=== PATIENT | female | born 1970 | race Caucasian/White ===

== ENCOUNTER 2016-10-08 17:38 | Emergency (ER) | payer OTHER ==
[2016-10-08 17:46] VITALS: TEMP 97.7
--- NOTE | 2016-10-08 20:01 | EDPHY ---
H & P Time Seen by Provider: 10/08/16 19:42 HPI/ROS: CHIEF COMPLAINT: Right upper extremity pain after fall HISTORY OF PRESENT ILLNESS: 46-year-old female presents to Urgent Care complaining of pain in her right elbow, right wrist and shoulder after she slipped on some ice around noon today. She did not hit her head or lose consciousness. She is right-hand dominant. She has pain especially in her right wrist with movement. Denies left upper extremity pain. Denies abdominal pain. Denies chest pain or difficulty breathing. She does have some mild upper back pain. She is also complaining of right knee pain. She is able to ambulate. Denies abdominal pain or vomiting. Denies symptoms in her left upper extremity. REVIEW OF SYSTEMS: Constitutional: No fever, no chills. Eyes: No double or blurry vision. ENT: No sore throat. Respiratory: No cough, no shortness of breath. Cardiac: No chest pain. Gastrointestinal: No abdominal pain, vomiting or diarrhea. Genitourinary: No dysuria. Musculoskeletal: As above. No neck pain. Skin: No rashes. Neurological: No headache. Past Medical/Surgical History: Asthma Social History: and lives in [place] Smoking Status: Never smoked Physical Exam: General Appearance: Alert, no distress. No physical signs of trauma to her head. She is mentating normally and answering questions appropriately. Eyes: Pupils equal and round. Extraocular motions are all intact. ENT: Mouth: Mucous membranes moist. Respiratory: No wheezing, rhonchi, or rales, lungs are clear to auscultation. Cardiovascular: Regular rate and rhythm. Gastrointestinal: Abdomen is soft and nontender, no masses, no rebound or guarding, bowel sounds normal. Neurological: Alert and oriented x 3, cranial nerves II through XII grossly intact Skin: Warm and dry, no rashes. Musculoskeletal: Nontender to palpate along the cervical, thoracic or lumbar spine. Neck is supple. Extremities: Pain with range of motion of the right wrist especially with supination. She has some mild pain with palpation over the distal radius. Mild pain with palpation in the right elbow. No palpable crepitus or other bony abnormality. She has full extension and full flexion of the right elbow. She has pain with full supination of the right elbow and wrist. Full range of motion of the right shoulder. Normal sensation to light touch with normal 2 point discrimination. Strong radial pulse at the right wrist. Full range of motion of the left lower extremity and her lower extremities bilaterally. Psychiatric: Patient is oriented X 3, there is no agitation. Constitutional: Initial Vital Signs Temperature (C) 36.5 C 10/08/16 17:43 Heart Rate 83 10/08/16 17:43 Respiratory Rate 18 10/08/16 17:43 Blood Pressure 153/102 H 10/08/16 17:43 O2 Sat (%) 97 10/08/16 17:43 O2 Delivery Mode Room Air Allergies/Adverse Reactions: No Known Allergies Allergy (Unverified 01/25/10 21:21) Home Medications: Medication Instructions Recorded Albuterol 10/08/16 Hydrocodone/APAP 5/325 [[place] 1 each PO Q4-6PRN PRN #15 tab 10/08/16 5/325 (*)] Medical Decision Making - Diagnostics Imaging: X-rays of the right wrist reveal no fractures. This is reviewed by myself the PAC system. Radiology interpretation to follow. Procedures: Patient was placed in Velcro wrist splint and examined post application in good placement with normal [employer]. ED Course/Re-evaluation: 46-year-old female presents with right upper extremity injury after she fell around noon today. Patient is primary complaining of pain in her right wrist. X-rays of the right wrist reveal no fractures. She was placed in a splint for comfort and support. She was having pain in her right elbow and shoulder although she had full range of motion of her right elbow and right shoulder. She did not hit her head or lose consciousness. She has no other palpable bony deformity. Patient was given orthopedic referral follow-up in 1 week. Differential Diagnosis: Including but not limited to fracture, dislocation, contusion, sprain Departure - Departure Disposition: Home, Routine, Self-Care Clinical Impression: Right wrist sprain Qualifiers: Encounter type: initial encounter Qualifier Code: (S63.501A) Unspecified sprain of right wrist, initial encounter Condition: Good Instructions: Wrist Sprain (ED) Additional Instructions: Splint for comfort and support. Ibuprofen 600 mg every 8 hours as needed for pain. Hydrocodone for severe pain as directed to help you sleep. Caution drowsiness with this medication. Follow up with orthopedic physician in 1 week to recheck. Recheck your blood pressure with your primary care provider as discussed. Referrals: Sunny Painter MD [Medical Doctor] - 2-3 days, call for appt. (Orthopedic physician on-call) Prescriptions: Hydrocodone/APAP 5/325 [[place] 5/325 (*)] 1 each PO Q4-6PRN PRN #15 tab PRN Reason: Pain, Severe
[2016-10-08 20:36] VITALS: BP 130/76; PULSE 76; RESP 16; O2SAT 94
--- NOTE | 2016-10-08 23:17 | DX ---
Right Wrist, Four Views Indication: Fall. Findings: No joint effusion. No fracture or dislocation. No degenerative changes. Impression: Nothing acute radiographically.
== END 2016-10-08 20:26 | disposition home or self-care (01) ==
DX: S63.501A Unspecified sprain of right wrist, initial encounter (principal); J45.909 Unspecified asthma, uncomplicated; W00.0XXA Fall on same level due to ice and snow, initial encounter

== ENCOUNTER → 2017-08-31 | Outpatient (CLI) | payer OTHER | LOC: BMCIMAGING 08:06 | PROVIDERS: ATTEND Internal Medicine | DX: Z12.31 Encounter for screening mammogram for malignant neoplasm of breast (principal) | CPT/HCPCS: G0202 ==

== ENCOUNTER → 2018-03-06 | Outpatient (CLI) | payer OTHER | LOC: BMCIMAGING 08:13 | PROVIDERS: ATTEND Emergency Medicine | DX: M25.561 Pain in right knee (principal); M79.671 Pain in right foot; M79.661 Pain in right lower leg ==

== ENCOUNTER → 2018-10-06 | Outpatient (CLI) | payer OTHER | LOC: BMCIMAGING 07:25 | PROVIDERS: ATTEND Internal Medicine | DX: Z12.31 Encounter for screening mammogram for malignant neoplasm of breast (principal) ==